=== PATIENT | female | born 1990 | race Caucasian/White ===

== ENCOUNTER 2017-01-23 03:39 | Emergency (ER) | payer MEDICAID ==
[~2017-01-23] VITALS: Ht 170.2 cm; Wt 74.8 kg
[2017-01-23 03:59] VITALS: BP 117/81
== END 2017-01-23 05:00 | disposition left against medical advice (07) ==
LOC: ER 03:49
DX: R07.0 Pain in throat (principal); J02.9 Acute pharyngitis, unspecified; Z53.21 Procedure and treatment not carried out due to patient leaving prior to being seen by health care provider

== ENCOUNTER 2017-01-23 07:21 | Emergency (ER) | payer MEDICAID ==
[~2017-01-23] VITALS: Ht 170.2 cm; Wt 74.8 kg
[2017-01-23 07:33] VITALS: BP 128/84
[2017-01-23] MEDS ORDERED: methylPREDNISolone SOD SUCC 125 MG/2 ML VL IM ONE (08:00)
[2017-01-23] MEDS ORDERED: cefTRIAXone SOD 1,000 MG VL IM ONE (08:00)
== END 2017-01-23 08:30 | disposition home or self-care (01) ==
LOC: ER 07:27
DX: J03.90 Acute tonsillitis, unspecified (principal); F12.10 Cannabis abuse, uncomplicated; Z88.1 Allergy status to other antibiotic agents
CPT/HCPCS: 96372; 99284; J0696; J2930